=== PATIENT | female | born 1980 | race Caucasian/White ===

== ENCOUNTER 2019-12-27 10:37 | Outpatient (CLI) | payer OTHER, SELFPAY ==
--- NOTE | ~2019-12-27 | MM_ITS ---
EXAMINATION: MM screening spring BI w gail HISTORY: Screening mammogram TECHNIQUE: Craniocaudal and mediolateral oblique 3-D tomosynthesis images were obtained and synthetic 2-D images were generated. CAD analysis was submitted and interpreted. COMPARISON: No prior mammogram is available for comparison at this institution. BREAST PARENCHYMAL COMPOSITION: There are scattered areas of fibroglandular density. FINDINGS: There is no evidence of suspicious mass, calcification, or architectural distortion to sugg est malignancy in either breast. There has been no suspicious interval change. IMPRESSION: 1. No mammographic evidence of malignancy. 2. Recommend routine screening mammography in one year. BI-RADS Category 1: Negative Reviewed, dictated and finalized at location A.
== END 2019-12-27 10:38 | disposition home or self-care (01) ==
PROVIDERS: PCP Internal Medicine; Visit Provider Obstetrics & Gynecology
DX: Z12.31 Encounter for screening mammogram for malignant neoplasm of breast (principal)
CPT/HCPCS: 77063; 77067

== ENCOUNTER 2021-06-12 10:04 | Outpatient (CLI) | payer OTHER, SELFPAY ==
--- NOTE | ~2021-06-12 | MM_ITS ---
EXAMINATION: MM screening spring BI w gail HISTORY: Screening TECHNIQUE: Craniocaudal and mediolateral oblique 3-D tomosynthesis images were obtained and synthetic 2-D images were generated. CAD analysis was submitted and interpreted. COMPARISON: 12/27/2019 BREAST PARENCHYMAL COMPOSITION: There are scattered areas of fibroglandular density. FINDINGS: There is no evidence of suspicious mass, calcification, or architectural distortion to sugg est malignancy in either breast. There has been no suspicious interval change. IMPRESSION: 1. No mammographic evidence of malignancy. 2. Recommend routine screening mammography in one year. BI-RADS Category 1: Negative Reviewed, dictated and finalized at location A. OR COURTROOM CLERK
== END 2021-06-12 10:05 | disposition home or self-care (01) ==
LOC: ANHIMG 10:08
PROVIDERS: PCP Internal Medicine; Visit Provider Obstetrics & Gynecology
DX: Z12.31 Encounter for screening mammogram for malignant neoplasm of breast (principal)
CPT/HCPCS: 77063; 77067

== ENCOUNTER 2022-09-30 08:23 | Outpatient (CLI) | payer OTHER, SELFPAY ==
--- NOTE | ~2022-09-30 | MM_ITS ---
EXAMINATION: MM screening [facility] BI w gail HISTORY: Screening mammogram TECHNIQUE: Craniocaudal and mediolateral oblique 3-D tomosynthesis images were obtained and synthetic 2-D images were generated. CAD analysis was submitted and interpreted. COMPARISON: 06/12/2021, 12/27/2019 BREAST PARENCHYMAL COMPOSITION: There are scattered areas of fibroglandular density. FINDINGS: No suspicious mass, calcification, or architectural distortion are identified in either ronaldo ast to suggest malignancy. There has been no suspicious interval change. IMPRESSION: 1. No mammographic evidence of malignancy. 2. Recommend routine screening mammography in one year. BI-RADS Category 1: Negative Reviewed, dictated and finalized at location A.
== END 2022-09-30 08:24 | disposition home or self-care (01) ==
LOC: ANHIMG 08:25
PROVIDERS: PCP Nurse Practitioner; Visit Provider Obstetrics & Gynecology
DX: Z12.31 Encounter for screening mammogram for malignant neoplasm of breast (principal)
CPT/HCPCS: 77063; 77067

== ENCOUNTER 2024-12-15 08:56 | Outpatient (CLI) | payer OTHER, SELFPAY ==
--- NOTE | ~2024-12-15 | MM_ITS ---
EXAMINATION: MM screening spring BI w gail HISTORY: Screening TECHNIQUE: Craniocaudal and mediolateral oblique 3-D tomosynthesis images were obtained and synthetic 2-D images were generated. CAD analysis was submitted and interpreted. COMPARISON: Comparison to multiple prior studies sequentially, with oldest reviewed study dated 12/26. BREAST PARENCHYMAL COMPOSITION: Not dense: There are scattered areas of fibroglandular density. FINDINGS: There are developing asymmetries in the upper central aspect of the right breast, middle th ird. The left breast is stable without evidence for malignancy. IMPRESSION: 1. Developing right breast asymmetries. 2. Additional mammographic views and possible breast ultrasound are recommended. BI-RADS Category 0: Incomplete: Needs additional imaging evaluation. Reviewed, dictated and finalized at location B. IMPRESSION: 1. Developing right breast asymmetries. 2. Additional mammographic views and possible breast ultrasound are recommended . BI-RADS Category 0: Incomplete: Needs additional imaging evaluation.
--- OUTSIDE RECORDS SUMMARY | 2024-12-15 09:07 | XMS_ITS | Clinical Summary ---
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 Gender Identity Not on file Sexual Orientation Not on file Plan of Treatment Health Maintenance Due Date Last Done Comments Hepatitis C Virus (HCV) Screening 1978 TdaP Immunization 1978 Hepatitis B Immunization (1 of 3 - 19+ 3-dose series) 1997 Pap Smear 08/05/1999 Cervical Cancer Screening (CCS) 2008 HPV/Cotest 2008 Cologuard 08/05/2023 Colonoscopy 08/05/2023 Colorectal Cancer Screening 08/05/2023 Immunochemical Fecal Occult Blood 08/05/2023 SARS-COV-2 Immunization ( season) 2024 05/07/2021, 09/21/2020, 08/29/2020 Influenza Immunization (#1) 01/31/202508/2019, 04/12/2013 Respiratory Syncytial Virus (RSV) Immunization (Adult) (1 - 1-dose 75+ series) 2053 Human Papillomavirus (HPV) Immunization Aged Out No longer eligible b ased on patient's age to complete this topic Meningococcal Immunization (ACWY) Aged Out No longer eligible b ased on patient's age to complete this topic Pneumococcal Immunization Combined Aged Out No longer eligible b ased on patient's age to complete this topic Rotavirus Immunization Aged Out No lo nger eligible based on patient's age to complete this topic
--- OUTSIDE RECORDS SUMMARY | 2024-12-15 09:07 | XMS_ITS | Data Portability ---
Author Organization [place] - [email or web address] [facility] Address [address] [place] [address] Assessment Encounter Date Assessment Date Assessment LastModified by Organization Details LastModified Time 05/29/2024 05/29/2024 Urinary tract infection - Supported by the patient's symptoms of burning and discomfort during urination, alongside a recent history of UTI one or two months ago. - Prescribed Macrobid to be taken twice a day for five days - Prescription sent to [facility] in [place] - Advised the patient to increase fluid intake pasija Not available 05/29/2024 11:15:21 Plan of Treatment Reminders Order Date Submit Date Provider Last Modified By Organization Details Last Modified Time Details Appointments None recorded. Lab None recorded. Referral None recorded. Procedures None recorded. Surgeries None recorded. Imaging None recorded. Medication Orders Macrobid 100 mg capsule 2023 024 [id number], [address], [place], [id number], 11:14:35 Patient TargetsNo targets recorded. Patient Instructions Encounter Date Encounter Id Patient Instructions Last Modified By Organization Details Last Modified Time 05/29/2024 [id number] Summary of Today's Visit: Today, we talked about your sudden urinary tract infection (UTI) symptoms that began this morning, just before you embark on your cruise. You reported experiencing discomfort and burning sensation while urinating. Importantly, you did not have a fever or blood in your urine, and you mentioned having a UTI one to two months ago. Treatment Plan for UTI: To address your UTI symptoms promptly, I have prescribed Macrobid (nitrofurantoin) for you. You will need to take it twice a day for five days. 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 Hydration Advice: It's crucial for you to stay well-hydrated, especially while managing a UTI. Make sure you're drinking plenty of fluids throughout the day. This will help flush out bacteria from your urinary tract and alleviate some of the discomfort. Follow-Up Actions: - Begin taking Macrobid as prescribed: two times daily for five days. - Drink lots of fluids to help ease your symptoms. - Enjoy your cruise and call us if your symptoms worsen or do not improve over the next few days. pasija Not available 05/29/2024 11:15:30 Reason for Referral None Reported. Medical Equipment None Reported. Allergies No known drug allergies Medications Name Sig Start Date Stop Date Status Note LastModified by Organization Details LastModified Time Macrobid 100 mg capsule Take 1 capsule every 12 hours by oral route. 2023 active Not Available Not Available Not Princeai kamari riveraitalopr am 10 mg tablet active ADDED BY PATIENT: 1time daily Not Available Not Available Not Available UNLISTED MEDICATION Atamoxeti ne 100mg:: active ADDED BY PATIENT: Atamoxeti ne 100mg Not Available Not Available Not Available UNLISTED MEDICATION Bupropion xl 300mg:: active ADDED BY PATIENT: Bupropion xl 300mg Not Available Not Available Not Available Vitals None Recorded Social History None recorded. Functional Status None recorded. Mental Status None recorded. Family History Nothing Reported. Medical History No medical history recorded. Gynecological HistoryNo gynecological history recorded. Obstetrics History GPAL:G 0 P 0 0 0 0 Past Encounters Encounter ID Performer Location Encounter Start Date Encounter Closed Date Diagnosis/Indication Diagnosis SNOMED-CT Code Diagnosis ICD10 Code Diagnosis Note [id number] Patricia Holcomb MD [facility] [address] [address] 05/29/2024 11:09:27 05/29/2024 11:15:50 Acute urinary tract infection 068549576 N39.0 Health Concerns Section Related Observation LastModified by Organization Detai ls LastModified Time None Recorded Concern Status LastModified by Organization Details LastModified Time None Recorded Advance Directives Directive None Recorded Payers Insurance Date Sequence Insurance Name Policy Number Policy Noble Covered Member ID Noble Member ID Guarantor Name 05/29/2024 1 *SELF PAY* Chavo Brewer 05/29/2024 2 [facility] [id number] Bunny Brewer [id number] Bunny Brewer 05/29/2024 3 *SELF PAY* [id number] Bunny Brewer [id number] Bunny Brewer 05/29/2024 [employer] [id number] Bunny Brewer [id number] Bunny Brewer 06/10/2024 1 [facility] [id number] Bunny Brewer [id number] Bunny Brewer Notes Date Note Type Note Provider Name and Address Organization Details Recorded Time 05/29/2024 text/html Patient name , location, and phone number confirmed. Limitations of telemedicine evaluations reviewed, all questions answered, and verbal consent obtained to treat via secure video telemedicine interaction.Clinici an attests that the clinician is physically located in the following state at the time of the visit: wiPatient's current location is: home (home/workplace/oth er address) in [place]state[place]CC: UTI symptoms HPI: The patient presents with symptoms indicative of a urinary tract infection (UTI) that began on the morning of the visit. The patient reports experiencing dysuria characterized by a sensation of burning pain during urination and an increased urinary frequency. There is urgency to urinate despite having just voided. There is no accompanying fever or hematuria. The patient had a similar episode of UTI approximately one to two months ago. The patient denies any recent fever or hematuria. There are no other associated or aggravated symptoms noted. Patricia Holcomb MD [address], [place], [address], [facility] 05/29/2024 11:15:39 OBGyn Episode No OBEpisode recorded.
--- OUTSIDE RECORDS SUMMARY | 2024-12-15 09:07 | XMS_ITS | Patient Health Record ---
Author Organization [facility] [employer] [facility] Address [address] [place] [address] Care Team Providers Care Auto Body Technician Name Role Phone Bret SAMANIEGO, Regan Primary Care Provider Unavaila Jonna Eastman Unavailable [phone] Allergies No Known Allergies Reason For Referral No Information Medications Medication SIG (Take, Route, Frequency, Duration) Notes Start Date End Date Status Trintellix 10 MG 1 tablet Orally Once a day; Duration: 30 days 09/03/2024 Not-Takin g buPROPion HCl ER (XL) 300 MG 1 tablet in the morning Oral Once a day; Duration: 30 days Active Imani FE 06/21 1-20 MG-MCG 1 tablet Orally Once a day Active Atomoxetine HCl 100 mg 1 capsule oral on ce a day; Duration: 90 days 05/30/2025 Active Immunizations Vaccine Route Administration Date Status Comme nts Influenza, seasonal, injecta ble, preservative free, 3 yrs and above Unknown 04/12/2013 Administered Novel [id number], preservative free Unknown 04/04/2020 Administered Pfizer Biontech Covid-19 Vac cine 2nd dose Unknown 08/29/2020 Administered Pfizer Biontech Covid-19 Vac cine 2nd dose Unknown 09/21/2020 Administered Pfizer Biontech Covid-19 Vac cine 2nd dose Unknown 05/07/2021 Administered Social History Tobacco Use: Social History Observation Description Date Details (start date - stop date) Never Smoker NA - NA Sex Assigned At : Social History Observation Description Sex Assigned At Female Household Question Answer Notes Marital status: Number of adults in household: 2 Number of children in household: 2 Tobacco Control (Standard) Question Answer Notes Tobacco use: Nonsmoker AUDIT-C (Standard) Question Answer Notes Did you have a drink containing alcohol in the p ast year? Yes How often did you have six o r more drinks on one occasion in the past year? Never (0 point) Section Notes: Substance UseDo you or have you ever smoked tobacco?: Never smokerHow much tobacco do you smoke?: NoneDo you or have you ever used e-cigarettes or vape?: Never used electronic cigarettesDo you or have you ever used smokeless tobacco?: Never used smokeless tobaccoHow much tobacco do you chew?: noneWhat was the date of your most recent tobacco screening?: 11/12/2022Has tobacco cessation counseling been provided?: NoWhat is your level of alcohol consumption?: OccasionalHow many years have you consumed alcohol?: 20Do you use any illicit or recreational drugs?: NoWhich illicit or recreational drugs have you used?: NoneHave you used IV drugs?: NoWhat is your level of caffeine consumption?: ModerateEducation and OccupationWhat is the highest grade or level of school you have completed or the highest degree you have received?: Bachelor's degree (e.g., BA, AB, BS)Are you currently employed?: YesWho is your employer?: Independent contractorMarriage and SexualityWhat is your relationship status?: MarriedAre you sexually active?: YesDo you use protection during sex?: NoHow many children do you have?: 2 (Notes: Case (7); Emily)Home and EnvironmentDo you have any siblings?: 2 (Notes: Sister (Leigha)-16 years older than Cl.)Are there any guns present in your home?: YesLifestyleDo you feel stressed (tense, restless, nervous, or anxious, or unable to sleep at night)?: To some extentAdvance DirectiveDo you have an advance directive?: NoDo you have a medical power of insurance defense attorney?: NoPublic Health and TravelHave you been to an area known to be high risk for COVID-19?: NoOtherEducation: Post GraduateFamily history of heart disease?: NoHigh blood pressure: NoHigh Cholesterol: NoHigh number of sexual partners: NoHistory of inconsistent/no condom use: NoMarital status: MarriedGender Identity and LGBTQ IdentitySexual orientation: Straight or heterosexual Problems Problem Type SNOMED Code ICD Code Onset Dates Problem Status W/U Status Risk Notes Problem Mild recurrent major depression (01927253) Major depressive disorder, recurrent, mild (F33.0) 09/05/19 24 Active confirmed Problem Generalized anxiety disorder (77539863) Generalized anxiety disorder (F41.1) 09/05/19 24 Active confirmed Problem Primary insomnia (9771250) Primary insomnia (F51.01) 09/05/19 24 Active confirmed Problem Attention deficit hyperactivity disorder, predominantly inattentive type (06880340) Attention-deficit hyperactivity disorder, predominantly inattentive type (F90.0) 09/05/19 24 Active confirmed Vital Signs Heart Rate 96 /min 12/01/2024 Height-cm 162.56 cm 12/01/2024 Blood pressure diastolic 85 mm Hg 12/01/2024 Weight-kg 85.82 kg 12/01/2024 Height 64.00 in 12/01/2024 Blood pressure systolic 140 mm Hg 12/01/2024 Weight 189.2 lbs 12/01/2024 BMI 32.47 kg/m2 12/01/2024 Encounters Encounter Location Date Provider Diagnosis [facility] [address] [address] 09/03/2024 Jonna Cordoba Generalized anxiety disorder F41.1 ; Major depressive disorder, recurrent, mild F33.0 ; Attention-deficit hyperactivity disorder, predominantly inattentive type F90.0 ; Primary insomnia F51.01 ; Encounter for screening for cardiovascular disorders Z13.6 and Encounter for screening for depression Z13.31 [facility] [place] [id number] [facility] [address] OF [facility] [address] [address] 12/01/2024 Jonna Cordoba Major depressive disorder, recurrent, mild F33.0 ; Generalized anxiety disorder F41.1 ; Attention-deficit hyperactivity disorder, predominantly inattentive type F90.0 ; Primary insomnia F51.01 ; Encounter for screening for cardiovascular disorders Z13.6 and Dietary counseling and surveillance Z71.3 [facility] [place] [id number] ON [facility] OF [facility] [address] [address] 08/13/2024 [facility] [place] [address] [facility] [address] [address] 08/13/2024 [facility] [place] [address] [address] 08/14/2024 Jonna Cordoba Assessments Encounter Date Diagnosis (ICD Code) Assessment Notes Treatment Notes Treatment Clinical Notes Section Notes 09/03/2024 Generalized anxiety disorder (ICD-10 - F41.1) 12/01/2024 Major depressive disorder, recurrent, mild (ICD-10 - F33.0) 12/01/2024 Generalized anxiety disorder (ICD-10 - F41.1) 12/01/2024 Attention-deficit hyperactivity disorder, predominantly inattentive type (ICD-10 - F90.0) 09/03/2024 Attention-deficit hyperactivity disorder, predominantly inattentive type (ICD-10 - F90.0) 09/03/2024 Major depressive disorder, recurrent, mild (ICD-10 - F33.0) Electronic Prior Authorization was requested for Trintellix 20 MG Tablet. Provider can order medication once approval received. 09/03/2024 Primary insomnia (ICD-10 - F51.01) 12/01/2024 Primary insomnia (ICD-10 - F51.01) 12/01/2024 Encounter for screening for cardiovascular disorders (ICD-10 - Z13.6) 09/03/2024 Encounter for screening for cardiovascular disorders (ICD-10 - Z13.6) 09/03/2024 Encounter for screening for depression (ICD-10 - Z13.31) 12/01/2024 Dietary counseling and surveillance (ICD-10 - Z71.3) 09/03/2024 Huy Raymond presents for follow-up with concerns about sleep, anxiety, and medication side effects, currently on atomoxetine, bupropion XR, and escitalopram for ADHD, depression, and anxiety. Major Depressive Disorder Assessment: Patient has been on bupropion XR 300 mg daily and escitalopram 10 mg daily for depression. She reports overall good response to her current medication regimen. History of trials with Zoloft and Prozac. Patient expresses some hesitance about changing medications but acknowledges potential benefits of adjustments. Plan: - Continue bupropion XR 300 mg PO daily - Stop escitalopram 10 mg PO daily - Initiate Trintellix, samples given - Monitor for efficacy and side effects - Discuss potential medication adjustments at next follow-up Generalized Anxiety Disorder Assessment: Patient reports some ongoing worrying but denies feeling consistently anxious. She experiences anxiety related to couples counseling and concerns about her daughter. Patient also notes some sleep onset anxiety. Currently treated with escitalopram 10 mg daily, which she has been on for an extended period. Plan: - Monitor anxiety levels with switching from Escitalopram to Trintellix - Encourage continuation of couples counseling - Discuss anxiety management techniques at next follow-up Attention Deficit Hyperactivity Disorder (ADHD) Assessment: Patient is currently on atomoxetine 100 mg for ADHD treatment. She reports overall satisfaction with her current medication regimen, suggesting good symptom control. Plan: - Continue atomoxetine 100 mg PO daily - Monitor for efficacy and side effects Insomnia Assessment: Patient reports concerns with sleep, primarily sleep onset difficulties associated with anxiety. She denies major problems with sleep overall and generally feels rested upon waking. Previous trial of trazodone was reportedly ineffective. Plan: - Discuss sleep hygiene techniques - Consider alternative sleep medication options at next follow-up if symptoms persist Medication Side Effects Assessment: Patient reports possible medication-relat ed side effects, including feeling on edge, activated, and experiencing increased sweating. She also mentions a slight tremor but denies feeling jittery. These symptoms may be related to her current medication regimen, particularly the combination of atomoxetine, bupropion, and escitalopram. Plan: - Monitor and reassess side effects at next follow-up - Discuss potential medication adjustments to address side effects - Educate patient on recognizing and reporting significant side effects 12/01/2024 Huy Brewer, a 44-year-old female, presents with concerns about medication side effects, including decreased libido, excessive sweating, and restless legs syndrome. Medication Side Effects Assessment: Patient reports decreased libido, which is likely attributed to escitalopram. She also experiences excessive sweating and difficulty controlling body temperature, which could be related to her current medications (bupropion and atomoxetine) or potentially perimenopausal symptoms. Restless legs syndrome and muscle twitching, primarily occurring at night or when tired, may be side effects of bupropion. These side effects are impacting the patient's quality of life and warrant medication adjustment. Plan: - Discontinue escitalopram: - Week 1: Reduce to 5 mg daily - Week 2: Discontinue completely - Initiate Trintellix: - Week 1: Start at 5 mg daily - Week 2: Increase to 10 mg daily - Week 3: Continue at 10 mg daily - Continue bupropion XL 300 mg daily - Continue atomoxetine 100 mg daily - Follow up in 4 weeks to assess response to medication changes Hypertension Assessment: Patient's blood pressure is elevated at 140/85 mmHg, consistent with previous reading of 140/82 mmHg. Current medications, including bupropion and atomoxetine, may be contributing to increased blood pressure. The hypertension may also be related to the reported heat intolerance and excessive sweating. Plan: - Monitor blood pressure at follow-up appointments - Consider potential medication adjustments if hypertension persists after switching from escitalopram to Trintellix Depression and Anxiety Assessment: Patient reports stable mood despite recent stressors. Current medication regimen includes bupropion XL 300 mg for depression and escitalopram 10 mg for anxiety. The decision to switch from escitalopram to Trintellix aims to address sexual side effects while maintaining efficacy for both depression and anxiety. Plan: - Transition from escitalopram to Trintellix as outlined above - Continue bupropion XL 300 mg daily for depression - Monitor for changes in mood and anxiety symptoms during medication transition Plan Of Treatment Next Appt Details Provider Name:Jonna jimenez, 12/29/2024 09:45:00 AM, [address] [facility] [address] [facility] [address], [place], [address], Insurance Providers Payer Name Payer Address Payer Phone Subscriber Number Group Number Insured Name Patient Relationship to Insured Coverage Start Date Coverage End Date [facility] [address] [address] [place] [address] [id number] PAIGE BREWER Spouse - patient is the spouse of the insured Medical (General) History Medical History History ICD Code Attention deficit hyperactivity disorder , predominantly inattentive type Generalized anxiety disorder Mild recurrent major depression Obesity Primary insomnia Surgical History Surgery Date(Month/Year) Other 03/12/2012
--- OUTSIDE RECORDS SUMMARY | 2024-12-15 09:07 | XMS_ITS | Clinical Summary ---
Author Organization [facility] Address [address] [place] [address] Care Team Providers Care Pipe Fitter Marine Name Role Phone Isai Marcos MD Primary Care Provider [phone] Source Comments [facility],non-owned Affiliates and Associated Physician Practices is amultiple site organization consisting of ambulatory clinics and hospital sitesin [place], [place], [place] and [place]. This disclosure is being madepursuant to the Care Everywhere program and may not contain all information available regarding this patient. Last updated 18.[facility] Allergies No known active allergies Social History Tobacco Use Types Packs/Day Years Used Date Smoking Tobacco: Never Assessed Comments Unknown Sex and Gender Information Value Date Recorded Sex Assigned at Not on file Legal Sex Female 8:47 AM CDT Gender Identity Not on file Sexual Orientation Not on file Plan of Treatment Health Maintenance Due Date Last Done Comments COLOGUARD (AGES 45-75) - COL ON CA SCREENING 1978 COLON MONITORING 1978 COLONOSCOPY - COLON CA SCREENING 1978 CT COLONOGRAPHY - COLON CA SCREENING 1978 Colorectal Cancer Screening 1978 FIT - COLON CA SCREENING 1978 FLEX SIG - COLON CA SCREENING 1978 LIPID TESTING 1978 MAMMOGRAM 1978 HIV SCREENING 1993 HEPATITIS C SCREENING 07/30/1996 DTAP/TDAP/TD VACCINES (1 - Tdap) 1997 HEPATITIS B VACCINE (1 of 3 - 19+ 3-dose series) 1997 COVID-19 VACCINE (2023-2 5 season) 2024 DEPRESSION SCREENING 06/02/2024 INFLUENZA VACCINE (#1) 2025 ZOSTER VACCINE (1 of 2) 2028 HIB VACCINE Aged Out No longer eligi ble based on patient's age to complete this topic HPV VACCINE Aged Out No longer eligi ble based on patient's age to complete this topic MENINGOCOCCAL (Group B) VACC INE SHARED DECISION-MAKING Aged Out No longer eligibl e based on patient's age to complete this topic MENINGOCOCCAL GROUPS A/C/Y/W VACCINE Aged Out No longer eligible b ased on patient's age to complete this topic PNEUMOCOCCAL VACCINE Aged Out No long er eligible based on patient's age to complete this topic Insurance Care Teams Pipe Fitter Marine Relationship Specialty Start Date End Date Isai Marcos MD [address] [place] [id number] PCP - General Internal Medicine 01/12/17
== END 2024-12-15 08:57 | disposition home or self-care (01) ==
LOC: ANHIMG 08:58
PROVIDERS: PCP Nurse Practitioner; Visit Provider Obstetrics & Gynecology
DX: Z12.31 Encounter for screening mammogram for malignant neoplasm of breast (principal); R92.8 Other abnormal and inconclusive findings on diagnostic imaging of breast
CPT/HCPCS: 77063; 77067

== ENCOUNTER 2025-01-05 12:33 | Outpatient (CLI) | payer OTHER, SELFPAY ==
--- NOTE | ~2025-01-05 | MM_ITS ---
EXAMINATION: MM diagnostic spring RT w gail INDICATION: 44-year old female; BI-RADS 0, callback to evaluate Right breast asymmetry COMPARISON: 12/15/2024 TECHNIQUE: Digital breast tomosynthesis True lateral view and spot compression pain CC and MLO views of Right breast were obtained with computer-aided detection to assist in interpretation of the study. FINDINGS: There are scattered areas of fibroglandular density. The asymmetries seen in the upper central, middle third Right breast on the screening mammogram effac es on additional views, compatible with normal overlapping tissue.. IMPRESSION: Right breast finding represents superimposition of fibroglandular tissue. No further investigation ne cessary. RECOMMENDATION: Annual screening mammography in 12 months BI-RADS 2, BENIGN Reviewed, dictated and finalized at location B. IMPRESSION: Right breast finding represents superimposition of fibroglandular tissue. No fu rther investigation necessary. RECOMMENDATION: Annual screening mammography in 12 months BI-RADS 2, BENIGN
--- OUTSIDE RECORDS SUMMARY | 2025-01-05 12:41 | XMS_ITS ---
Author Organization [facility] Address [address] [facility] [address] [place] [address] Care Team Providers Care Code Inspector Name Role Phone Regan Queen NP Primary Care Provider Unavaila Jonna Eastman Unavailable [phone] REASON FOR VISIT 1 month f/u Medications Medication SIG (Take, Route, Frequency, Duration) Notes Start Date End Date Status Atomoxetine HCl 100 mg 1 capsule oral once a day Active Imani FE 06/21 1-20 MG-MCG 1 tablet Oral ly Once a day Active buPROPion HCl ER (XL) 300 MG 1 tablet in the morning Oral Once a day; Duration: 30 days Active Trintellix 10 MG 1 tablet Orally Once a day 09/03/2024 Active Social History Tobacco Use: Social History Observation [...] in the past year? Never (0 point) Vital Signs Height 64.00 in 12/29/2024 Height-cm 162.56 cm 12/29/2024 Encounters Encounter Location Date Provider Diagnosis [facility] [address] [place] [address] 12/29/2024 Jonna Cordoba Major depressive disorder, recurrent, mild F33.0 ; Attention-deficit hyperactivity disorder, predominantly inattentive type F90.0 ; Generalized anxiety disorder F41.1 and Primary insomnia F51.01 Assessments Encounter Date Diagnosis (ICD Code) Assessment Notes Treatment Notes Treatment Clinical Notes Section Notes 12/29/2024 Major depressive disorder, recurrent, mild (ICD-10 - F33.0) 12/29/2024 Attention-deficit hyperactivity disorder, predominantly inattentive type (ICD-10 - F90.0) 12/29/2024 Generalized anxiety disorder (ICD-10 - F41.1) 12/29/2024 Primary insomnia (ICD-10 - F51.01) 12/29/2024 Huy Lopez, female, presenting for medication management and follow-up on recent medication changes, including switching from Lexapro to Trintellix and adjusting timing of other medications. Medication Management Assessment: Patient recently switched from Lexapro to Trintellix. She reports experiencing initial increased energy and anxiety, which have since subsided. Minor side effect of constipation was noted but appears to have resolved. Patient has adjusted timing of medications, taking all at night. Atomoxetine and Trintellix timing appears appropriate, but bupropion may be better suited for morning administration due to its activating effects. Patient reports improvement in movement-related symptoms. Plan: - Continue Trintellix 10 mg - Continue atomoxetine 100 mg at night - Continue bupropion XL 300 mg - Recommend taking in the morning due to potential activating effects - Follow up in 6-8 weeks to reassess Trintellix efficacy and consider dose adjustment if needed - Monitor for side effects and efficacy of current medication regimen Psychotherapy Consideration Assessment: Patient has previous positive experience with psychotherapy, particularly with a therapist who had ADHD. Patient is considering resuming therapy and has been provided information about therapists who specialize in deeper psychological exploration. Plan: - Offer packet of therapy resources - Provide referrals to therapists as needed, with focus on those specializing in deeper psychological exploration (e.g., Debo and Ephraim) - Encourage patient to consider resuming psychotherapy Medication Supply Assessment: Patient's medications were previously sent to [facility] with a 30-day supply and one refill. Patient may need medications sent to a different pharmacy for convenience. Plan: - Offer to send prescriptions to [facility] if preferred by patient - Ensure patient has adequate supply of all current medications Plan Of Treatment Medication Medication Name Sig Start Date Stop Date Notes Atomoxetine HCl 100 mg 1 capsule oral once a day buPROPion HCl ER (XL) 300 MG 1 tablet in the morning Oral Once a day; Duration: 30 days Trintellix 10 MG 1 tablet Orally Once a day 09/03/2024 Treatment Notes Assessment Notes Other Jose Lopez, female, presenting for medication management and follow-up on recent medication changes, including switching from Lexapro to Trintellix and adjusting timing of other medications. Medication Management Assessment: Patient recently switched from Lexapro to Trintellix. She reports experiencing initial increased energy and anxiety, which have since subsided. Minor side effect of constipation was noted but appears to have resolved. Patient has adjusted timing of medications, taking all at night. Atomoxetine and Trintellix timing appears appropriate, but bupropion may be better suited for morning administration due to its activating effects. Patient reports improvement in movement-related symptoms. Plan: - Continue Trintellix 10 mg - Continue atomoxetine 100 mg at night - Continue bupropion XL 300 mg - Recommend taking in the morning due to potential activating effects - Follow up in 6-8 weeks to reassess Trintellix efficacy and consider dose adjustment if needed - Monitor for side effects and efficacy of current medication regimen Psychotherapy Consideration Assessment: Patient has previous positive experience with psychotherapy, particularly with a therapist who had ADHD. Patient is considering resuming therapy and has been provided information about therapists who specialize in deeper psychological exploration. Plan: - Offer packet of therapy resources - Provide referrals to therapists as needed, with focus on those specializing in deeper psychological exploration (e.g., Debo and Ephraim) - Encourage patient to consider resuming psychotherapy Medication Supply Assessment: Patient's medications were previously sent to [facility] with a 30-day supply and one refill. Patient may need medications sent to a different pharmacy for convenience. Plan: - Offer to send prescriptions to [facility] if preferred by patient - Ensure patient has adequate supply of all current medications Next Appt Details Provider Name:Jonna jimenez, 02/22/2025 11:30:00 AM, [address], [address], [place], [address], Progress Notes * JOHNJOSE BDOB: [birth year] (44 yo F)Acc No.[id number]:12/29/2024 Patient: JOSE BARKER Provider: Brian Cordoba :1980 A ge:44 Y S ex:Female Date:12/29/2024 Address:[address] [place], [place] [id number] Pcp:Regan Queen NP Subjective: * Chief Complaints: * 1 . 1 month f/u. * HPI: [place]-Suicide Severity Rating Scale: Suicide Risk (CSRS-screener) i n the past one month Have you wished you were or wished you could go to sleep and not wake up? N o i n the past one month Have you actually had any thoughts of killing yourself? N o H ave you ever done anything, started to do anything, or prepared to do anything to end your life? N o D epression Screening: WILL-7 (2018 Edition) F eeling nervous, anxious, or on edge S everal days N ot being able to stop or control worrying?More than half the days W orrying too much about different things M ore than hafl the days T rouble relaxing S everal days B eing so restless that it is hard to sit still N ot at all B ecoming easily annoyed or irritable S everal days F eeling afraid as if something awful might happen S everal T otal WILL-7 Score 8 I f you checked any problems, how difficult have they made it for you to do your work, take care of things at home, or get along with other people? S omewhat difficult I nterpretation of Total ( 5 to 9) Mild D epression screening: PHQ-9 L ittle interest or pleasure in doing things?Several days F eeling down, depressed, or hopeless S everal days T rouble falling or staying asleep, or sleeping too much M ore than half the days F eeling tired or having little energy S everal days P oor appetite or overeating N ot at all F eeling bad about yourself or that you are a failure, or have let yourself or your family down S everal days T rouble concentrating on things, such as reading the newspaper or watching television S everal M oving or speaking so slowly that other people could have noticed; or the opposite, being so fidgety or restless that you have been moving around a lot more than usual N ot at all T houghts that you would be better off or of hurting yourself in some way N ot at all I nterpretation M ild Depression Intervention D epression Screening Findings P ositve F ollow-Up for Depression M ental health care management, Psychiatric follow-up S uicide Risk Assessment Performed 0 12/29/2024 H istory of Presenting Problem: This note is transcribed using speech recognition software. It is a reflection of a visit with the patient. It might have some inaccuracy, including medication names and transcribing errors, though efforts have been made to correct them. History of Present Illness Jose Lopez, a female patient, presents for follow-up regarding medication management for her psychiatric conditions. She recently switched from Lexapro to Trintellix and reports on her experience with the transition. The patient states that the switch to Trintellix has been relatively smooth, with minimal side effects. She initially experienced constipation, which has since improved. Jose notes feeling increased energy but also slightly more anxious, describing it as wanting to do stuff more so. However, she reports that these symptoms have subsided somewhat, and she currently doesn't feel too bad. Jose has made adjustments to her medication regimen, shifting all her medications to nighttime administration. She is currently taking atomoxetine 100mg, Trintellix 10mg, and bupropion extended-release 300mg. The patient reports a reduction in movement-related symptoms, stating, I don't feel like I have as much movements as much, like little, I don't know, I feel like that's a little bit better. Regarding her mental health care, Jose mentions previous positive experiences with therapy, particularly with a therapist named Latoya who also had ADHD. She expresses interest in potentially returning to therapy, specifically mentioning couples therapy that she and her partner attended. Medications and Supplements Patient is taking Trintellix 10mg, which replaced Lexapro. The switch caused initial constipation and increased energy with some anxiety, but these effects have subsided. Atomoxetine 100mg and bupropion XR 300mg are taken at night. Bupropion is noted to be activating. Patient reports reduced movements since starting the new regimen. Social History - Psychotherapy: Previously attended couples therapy and individual therapy with a therapist named Latoya who has ADHD Medical History - Attention-Deficit/Hyperactivity Disorder (ADHD) Review of Systems General: Positive for increased energy. Gastrointestinal: Positive for constipation. Psychiatric: Positive for increased anxiety. Neurological: Positive for decreased involuntary movements. * Medical History: A ttention deficit hyperactivity disorder, predominantly inattentive type, Generalized anxiety disorder, Mild recurrent major depression, Obesity, Primary insomnia. * Family History: F ather: Alcohol abuse . B rother: Family history of cancer, Notes: melanoma . * Social History: T obacco Use: T obacco Control (Standard) T obacco use: N onsmoker M igrated Social History: M igrated Social History: Alcohol Intake: Occasional 04/30/2018,Tobacco Years: Never smoker 04/30/2018. D rug/Alcohol: D rugs H ave you used drugs other than those for medical reasons in the past 12 months? N o Caffeine I ntake: 1 -2 cups per day AUDIT-C (Standard) D id you have a drink containing alcohol in the past year? Y es H ow often did you have six or more drinks on one occasion in the past year? N ever (0 point) H ousehold: H ousehold M arital status: m arried N umber of adults in household: 2 N umber of children in household: 2 M iscellaneous: S afety issues D o you feel safe at home? Y es A re there any firearms in the house? Y es Occupation: works full-time, logging contractor. * Medications: Carole CAMPA 06/21 1-20 MG-MCG Tablet 1 tablet Orally Once a day , Taking Atomoxetine HCl 100 mg Capsule 1 capsule oral once a day , stop date 05/30/2025, Taking buPROPion HCl ER (XL) 300 MG Tablet Extended Release 24 Hour 1 tablet in the morning Oral Once a day , Taking Trintellix 10 MG Tablet 1 tablet Orally Once a day Objective: * Vitals: H t: 64.00 in, Ht-cm: 162.56 cm. * Examination: G eneral Examination: M ental Status Examination - Behavior: Cooperative with the evaluation process. - Motor: Patient reports feeling like she has less movements, suggesting improvement in motor symptoms. - Mood: Patient reports feeling a little bit more anxious initially after medication change, but states I don't feel too bad now. - Thought Process: Able to provide coherent responses to questions, suggesting linear and goal-directed thought process. - Cognition: Alert and engaged in conversation, able to discuss medication changes and their effects. - Insight: Demonstrates some insight into her condition by recognizing changes in her symptoms and energy levels following medication adjustments. - Judgment: Shows good judgment by adhering to medication regimen and considering timing of medication intake to optimize effects. Assessment: * Assessment: 1. M ajor depressive disorder, recurrent, mild - F33.0 (Primary) 2 . A ttention-deficit hyperactivity disorder, predominantly inattentive type - F90.0 3 . G eneralized anxiety disorder - F41.1 4 . P rimary insomnia - F51.01 ? Plan: * Treatment: 2. A ttention-deficit hyperactivity disorder, predominantly inattentive type Continue Atomoxetine HCl Capsule, 100 mg, 1 capsule, oral, once a day. 3. O thers Notes: Jose Lopez, female, presenting for medication management and follow-up on recent medication changes, including switching from Lexapro to Trintellix and adjusting timing of other medications. Medication Management Assessment: Patient recently switched from Lexapro to Trintellix. She reports experiencing initial increased energy and anxiety, which have since subsided. Minor side effect of constipation was noted but appears to have resolved. Patient has adjusted timing of medications, taking all at night. Atomoxetine and Trintellix timing appears appropriate, but bupropion may be better suited for morning administration due to its activating effects. Patient reports improvement in movement-related symptoms. Plan: - Continue Trintellix 10 mg - Continue atomoxetine 100 mg at night - Continue bupropion XL 300 mg - Recommend taking in the morning due to potential activating effects - Follow up in 6-8 weeks to reassess Trintellix efficacy and consider dose adjustment if needed - Monitor for side effects and efficacy of current medication regimen Psychotherapy Consideration Assessment: Patient has previous positive experience with psychotherapy, particularly with a therapist who had ADHD. Patient is considering resuming therapy and has been provided information about therapists who specialize in deeper psychological exploration. Plan: - Offer packet of therapy resources - Provide referrals to therapists as needed, with focus on those specializing in deeper psychological exploration (e.g., Debo and Ephraim) - Encourage patient to consider resuming psychotherapy Medication Supply Assessment: Patient's medications were previously sent to [facility] with a 30-day supply and one refill. Patient may need medications sent to a different pharmacy for convenience. Plan: - Offer to send prescriptions to [facility] if preferred by patient - Ensure patient has adequate supply of all current medications * Procedure Codes: 9 6127 BEHAV ASSMT W/SCORE & DOCD/STAND INSTRUMENT * Preventive Medicine: Screenings: D epression screening Have you had a recent depression screening? Y es * Billing Information: * Visit Code: * Procedure Codes: 09540 BEHAV ASSMT W/SCORE & DOCD/STAND INSTRUMENT. * Electronic signature of Josh Cordoba on 01/05/2025 at 12:41 PM CDT Sign off status: Pending * Provider: Brian Cordoba Date: 12/29/2024 Generated for Chucky monique/Jose/Jefferson on: 01/05/2025 12:41 PM CDT History and Physical Notes * HPI (History of Present Illness) Category Sub-Category Detail Notes Category Not es History of Presenting Problem Depression screening PHQ-9 Little inte rest or pleasure in doing things: Several days Feeling down, depressed, or hopeless: Se veral days Trouble falling or staying a sleep, or sleeping too much: More than half the days Feeling tired or having little energy: S everal days Poor appetite or overeating: Not at all Feeling bad about yourself o r that you are a failure, or have let yourself or your family down: Several days Trouble concentrating on thi ngs, such as reading the newspaper or watching television: Several days Moving or speaking so slowly that other people could have noticed; or the opposite, being so fidgety or restless that you have been moving around a lot more than usual: Not at all Thoughts that you would be b sony off or of hurting yourself in some way: Not at all Interpretation: Mild Depression Intervention Depression Screening Findings: Ronel fernandes Follow-Up for Depression: Mental health care management, Psychiatric follow-up Suicide Risk Assessment Performed: 12/29 Depression Screening WILL-7 (2018 Edition) Feelin g nervous, anxious, or on edge: Several days Not being able to stop or control worryjose luis monique: More than half the days Worrying too much about different things : More than hafl the days Trouble relaxing: Several days Being so restless that it is hard to sit still: Not at all Becoming easily annoyed or irritable: Se veral days Feeling afraid as if something awful charity ht happen: Several days Total WILL-7 Score: 8 If you checked any problems, how difficult have they made it for you to do your work, take care of things at home, or get along with other people?: Somewhat difficult Interpretation of Total: (5 to 9) Mild [place]-Suicide Severity Rating Scale Suicide Risk (CSRS-screener) in the past one month Have you wished you were or wished you could go to sleep and not wake up?: No in the past one month Have y ou actually had any thoughts of killing yourself?: No Have you ever done anything, started to do anything, or prepared to do anything to end your life?: No Examination Category Sub-Category Detail Notes Category Not es General Examination Mental Status Examination - Behavior: Cooperative with the evaluation process. - Motor: Patient reports feeling like she has less movements, suggesting improvement in motor symptoms. - Mood: Patient reports feeling a little bit more anxious initially after medication change, but states I don't feel too bad now. - Thought Process: Able to provide coherent responses to questions, suggesting linear and goal-directed thought process. - Cognition: Alert and engaged in conversation, able to discuss medication changes and their effects. - Insight: Demonstrates some insight into her condition by recognizing changes in her symptoms and energy levels following medication adjustments. - Judgment: Shows good judgment by adhering to medication regimen and considering timing of medication intake to optimize effects.
--- OUTSIDE RECORDS SUMMARY | 2025-01-05 12:41 | XMS_ITS | Clinical Summary ---
Author Organization [facility] Address [address] [facility] [place] [address] Care Team Providers Care Roofing Machine Operator Name Role Phone Iasi Marcos MD Primary Care Provider [phone] Source Comments [facility],non-owned Affiliates and Associated Physician Practices is amultiple site organization consisting of ambulatory clinics and hospital sitesin [place], [place], [place]. This disclosure is being madepursuant to the Care Everywhere program and may not contain all information available regarding this patient. Last updated 18.[facility] Allergies No known active allergies Social History [...] to complete this topic Insurance Care Teams Roofing Machine Operator Relationship Specialty Start Date End Date Isai Marcos MD [address] [place] [id number] PCP - General Internal Medicine 01/12/17
--- OUTSIDE RECORDS SUMMARY | 2025-01-05 12:41 | XMS_ITS | Clinical Summary ---
Author Organization [facility] Address [address] [place] [address] Care Team Providers Care Mowing Machine Operator Name Role Phone Unavailable Primary Care Provider Unavailabl e Immunizations Immunization Administration Dates Next Due Covid-19, Mrna, Lnp-s, Pf, 30 Mcg/0.3 Ml Dose (Ronel castro) 05/07/2021 Social History Tobacco Use Types Packs/Day Years Used Date Smoking Tobacco: Never Assessed Comments Unknown Sex and Gender Information Value Date Recorded Sex Assigned at Not on file Legal Sex Female 9:03 AM MANAGER OF COMMUNITY RELATIONS Gender Identity Not on file Sexual Orientation [...]
--- OUTSIDE RECORDS SUMMARY | 2025-01-05 12:41 | XMS_ITS | Patient Health Record ---
Author Organization [facility] Address [address] [place] [address] Care Team Providers Care Superintendent Communications Name Role Phone Bret SAMANIEGO, Regan Primary Care Provider Unavaila Jonna Eastman Unavailable [phone] Allergies No Known Allergies Reason For Referral [...] tablet Orally Once a day 09/03/2024 Active Immunizations Vaccine Route Administration Date Status Comme nts Influenza, seasonal, injecta ble, preservative free, 3 yrs and above Unknown 04/12/2013 Administered Novel [id number], preservative free Unknown 04/04/2020 Administered Pfizer Biontech [...] NoDo you have a medical power of head soft sugar operator?: NoPublic Health and TravelHave you been to [...] Risk Notes Problem Mild recurrent major depression (91260904) Major depressive disorder, recurrent, mild (F33.0) 09/05/19 24 Active confirmed Problem Generalized anxiety disorder (44221396) Generalized anxiety disorder (F41.1) 09/05/19 24 Active confirmed Problem Primary insomnia (1190976) Primary insomnia (F51.01) 09/05/19 24 Active confirmed Problem Attention deficit hyperactivity disorder, predominantly inattentive type (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) Attention-deficit hyperactivity disorder, predominantly inattentive type (F90.0) 09/05/19 24 Active confirmed Vital Signs Heart Rate 96 /min 12/01/2024 Height-cm 162.56 cm 12/29/2024 Blood pressure diastolic 85 mm Hg 12/01/2024 Weight-kg 85.82 kg 12/01/2024 Height 64.00 in 12/29/2024 Blood pressure systolic 140 mm Hg 12/01/2024 Weight 189.2 lbs 12/01/2024 BMI 32.47 kg/m2 12/01/2024 Encounters Encounter Location Date Provider Diagnosis [facility] [place] [address] [address] 12/29/2024 Jonna Cordoba Major depressive disorder, recurrent, mild F33.0 ; Attention-deficit hyperactivity disorder, predominantly inattentive type F90.0 ; Generalized anxiety disorder F41.1 and Primary insomnia F51.01 [facility] [address] 09/03/2024 Jonna Cordoba Generalized anxiety disorder F41.1 ; Major depressive disorder, recurrent, mild F33.0 ; Attention-deficit hyperactivity disorder, predominantly inattentive type F90.0 ; Primary insomnia F51.01 ; Encounter for screening for cardiovascular disorders Z13.6 and Encounter for screening for depression Z13.31 [facility] [place] [id number] [facility] [address] [address] 12/01/2024 Jonna Cordoba Major depressive disorder, recurrent, mild F33.0 ; Generalized anxiety disorder F41.1 ; Attention-deficit hyperactivity disorder, predominantly inattentive type F90.0 ; Primary insomnia F51.01 ; Encounter for screening for cardiovascular disorders Z13.6 and Dietary counseling and surveillance Z71.3 [facility] [place] [address] [address] 08/13/[address] [address] 08/13/[address] [address] 08/14/2024 Jonna Cordoba [address] [address] 12/21/2024 Jonna Cordoba Major depressive disorder, recurrent, mild F33.[address] [address] 12/23/2024 Jonna Cordoba Major depressive disorder, recurrent, mild F33.[address] [address] 12/29/2024 Jonna Cordoba Assessments Encounter Date Diagnosis (ICD Code) Assessment Notes Treatment Notes Treatment Clinical Notes Section Notes 09/03/2024 Generalized anxiety disorder (ICD-10 - F41.1) 12/01/2024 Major depressive disorder, recurrent, mild (ICD-10 - F33.0) 12/01/2024 Generalized anxiety disorder (ICD-10 - F41.1) 12/21/2024 Major depressive disorder, recurrent, mild (ICD-10 - F33.0) 12/23/2024 Major depressive disorder, recurrent, mild (ICD-10 - F33.0) 12/29/2024 Major depressive disorder, recurrent, mild (ICD-10 - F33.0) 12/29/2024 Attention-deficit hyperactivity disorder, predominantly inattentive type (ICD-10 - F90.0) 12/29/2024 Generalized anxiety disorder (ICD-10 - F41.1) 12/01/2024 [...] F51.01) 12/01/2024 Primary insomnia (ICD-10 - F51.01) 12/29/2024 Primary insomnia (ICD-10 - F51.01) 12/01/2024 Encounter for screening for cardiovascular disorders (ICD-10 - Z13.6) 09/03/2024 Encounter for screening for cardiovascular disorders (ICD-10 - Z13.6) 09/03/2024 Encounter for screening for depression (ICD-10 - Z13.31) 12/01/2024 Dietary counseling and surveillance (ICD-10 - Z71.3) 12/29/2024 Other Michelle Lopez, female, presenting for medication management and [...] Assessment: Patient's medications were previously sent to [facility] with a 30-day supply and one refill. Patient may need medications sent to a different pharmacy for convenience. Plan: - Offer to send prescriptions to [facility] if preferred by patient - Ensure patient has adequate supply of all current medications 09/03/2024 Huy Raymond presents for follow-up with [...] and reporting significant side effects 12/01/2024 Huy Lopez, a 44-year-old female, presents with concerns about [...] Of Treatment Next Appt Details Provider Name:Jonna Christie jimenez, 02/22/2025 11:30:00 AM, [address] [facility] [address], [facility] [address], [place], [address], Insurance Providers Payer Name Payer Address Payer Phone Subscriber Number Group Number Insured Name Patient Relationship to Insured Coverage Start Date Coverage End Date [facility] [address] [address] [place] [address] [id number] PAIGE LOPEZ Spouse - patient is the spouse of the insured Medical (General) History Medical History History ICD Code Attention deficit hyperactivity disorder , predominantly inattentive type Generalized anxiety disorder Mild recurrent major depression Obesity Primary insomnia Surgical History Surgery Date(Month/Year) Other 03/12/2012
== END 2025-01-05 12:34 | disposition home or self-care (01) ==
PROVIDERS: PCP Nurse Practitioner; Visit Provider Obstetrics & Gynecology
DX: R92.8 Other abnormal and inconclusive findings on diagnostic imaging of breast (principal)
CPT/HCPCS: 77061; 77065; G0279